=== PATIENT | male | born 1975 | race Caucasian/White ===

== ENCOUNTER 2019-05-21 21:50 | Observation (INO) ==
[2019-05-21] MEDS ORDERED: ADENOCARD ONE (22:14)
[2019-05-21] MEDS ORDERED: ADENOCARD IV ONE (22:24)
--- NOTE | 2019-05-21 22:24 | PROVIDER DOCUMENTATION ---
This chart was entered by Josephine Dobson Scribe, acting as scribe for Ning Rodriguez MD. HPI-Cardiac General - General Stated Complaint: STV ATTACK/HISTORY Time Seen by Provider: 05/21/19 22:14 Source: patient Allergies/Adverse Reactions: Patient Allergies Allergy/AdvReac Type Severity Reaction Status Date / Time Unable to Assess Allergy Verified 01/15/19 16:26 Home Medications: Home Medication List Medication Instructions Recorded Confirmed Last Taken Type Amlodipine [Norvasc] 5 mg PO DAILY #90 tab 11/08/17 01/15/19 01/15/19 08:30 Rx Aspirin 325 mg PO DAILY #90 tab 11/08/17 01/15/19 01/15/19 08:30 Rx LISINOpril [Prinivil] 20 mg PO DAILY #90 tab 11/08/17 01/15/19 01/15/19 08:30 Rx Levothyroxine [Synthroid] 50 microgm PO DAILY #180 tab 11/08/17 01/15/19 01/15/19 08:30 Rx Metoprolol [Lopressor] 50 mg PO DAILY #90 tab 11/08/17 01/15/19 01/15/19 08:30 Rx - History of Present Illness-Cardiac Nature of Presenting Problem: 43 yom c/o svt, weak and very diaphoretic. pt sts happened 1 hr while taking a bath. pt has no cp but has minimal sob. pt has hx of svt, unsure what rx is on to control, and hypothyroid, takes sinthroid and dm. pt sts last had svt on tuesday but didn't seek treatment. pt is smoker, no alcohol or drug use. 2212 svt converted adenosine 6mg Review of Systems - Adult - REVIEW OF SYSTEMS - ADULT Constitutional: reports: no symptoms reported. denies: chills, fever, fatique Eyes: reports: no symptoms reported Ears, Nose, Mouth & Throat: reports: no symptoms reported Cardiovascular: reports: see HPI, irregular heart rate (svt). denies: chest pain, orthopnea, palpitations, syncope Respiratory: reports: see HPI, shortness of breath (minimal). denies: cough, excessive sputum production, hemoptysis Gastrointestinal: reports: no symptoms reported. denies: diarrhea, nausea, vomiting Genitourinary: reports: no symptoms reported Musculoskeletal: reports: see HPI, muscle weakness Integumentary: reports: no symptoms reported Neurological: reports: no symptoms reported Psychiatric: reports: no symptoms reported Endocrine: reports: see HPI, excessive sweating. denies: change in skin pigment, goiter, increased thirst Hematologic/Lymphatic: reports: no symptoms reported Allergic/Immunologic: reports: no symptoms reported All Other Systems: Reviewed and Negative Past History - Adult - PAST MEDICAL HISTORY-ADULT Review of Records: reports: Old Records Reviewed, Nursing Assessment Review, Medications Reviewed, Social history reviewed & non-contributory. Major Childhood Illnesses: reports: denies history Cardiovascular: reports: HTN, hyperlipidemia, other (svt) Respiratory: reports: denies history Gastrointestinal: reports: denies history Obstetrical/Gynecological: reports: denies history Genitourinary: reports: denies history Musculoskeletal: reports: denies history Neurological: reports: denies history Psychiatric: reports: depression Endocrine/Immune: reports: Diabetes, thyroid disorder Other Conditions: reports: denies history - PRIOR SURGERIES/PROCEDURES Surgical/Procedure History: reports: reviewed, not pertinent - IMMUNIZATION STATUS Childhood Immunizations: See Nurse Assessment Flu Vaccine: See Nurse Assessment - FAMILY HISTORY Family History: reviewed, not pertinent - SOCIAL HISTORY Smoking: cigarettes, less than 1 pack/day Provider spent 3-5 mins advising pt. on dangers of tobacco.: Discussed manners to quit use, and f/u contacts for add'l counseling. Substance Use: none/never Physical Exam-General - PHYSICAL EXAM-ADULT Initial Vital Signs Reviewed: Yes - CONSTITUTIONAL General Appearance: alert, mild distress, obese, other (diaphorhetic). negative: slow to respond, obtunded, combative - EYES Eyes: PERRL/EOMI, pink conjunctivae - HEAD, EARS, NOSE, MOUTH & THROAT HENMT: normocephalic/atraumatic, moist mucous membranes, normal ENT inspection - NECK Neck: non-tender, full range of motion, supple, normal inspection - RESPIRATORY Respiratory: chest non-tender, lungs clear, normal breath sounds, no pleuratic chest pain, no respiratory distress, no accessory muscle use - CARDIOVASCULAR Cardiovascular: normal peripheral pulses, no edema, no gallop, no JVD, no murmur , tachycardia (svt). negative: regular rate, rhythm, JVD, bradycardia, friction rub - GASTROINTESTINAL (ABDOMEN) Abdominal Exam: normal bowel sounds, non tender, soft, other (pt has sx scar epigastric to periumbilical) - LYMPHATIC Lymphatic: no adenopathy - MUSCULOSKELETAL Back Exam: normal inspection, no CVA tenderness, no vertebral tenderness Extremity: normal range of motion, non-tender, normal inspection Peripheral Pulses: radial (R): 2+, radial (L): 2+ - SKIN Integumentary: normal color, normal turgor, diaphoresis. negative: warm/dry, rash, swelling, tenderness - NEUROLOGIC Neurologic: grossly normal, no motor/sensory deficits - PSYCHIATRIC Psych/Mental Status: normal mood/affect, normal thought content, normal thought process, oriented x 3 - HEART Score HEART Score: History: Slightly Suspicious HEART Score: ECG: Non-Specific Repolarization Disturbance/LBBB/PM HEART Score: Age: 45-65 Years HEART Score: Risk Factors for Atherosclerotic Disease: 1 or 2 Risk Factors HEART Score: Troponin: < or = Normal Limit Total HEART Score:: 3 Progress - PLAN OF CARE/RESULTS Progress/Plan/Lab Results: Vital Signs - 8 hr 05/21/19 22:00 05/21/19 22:18 05/21/19 22:20 Temperature 98.7 F Pulse Rate 160 H 111 H Respiratory Rate 22 Blood Pressure 104/69 124/95 O2 Sat by Pulse Oximetry 96 96 05/21/19 22:30 05/21/19 22:40 05/21/19 22:50 Temperature Pulse Rate 111 H 113 H 108 H Respiratory Rate 22 20 20 Blood Pressure O2 Sat by Pulse Oximetry 97 97 98 05/21/19 23:00 05/21/19 23:10 05/21/19 23:12 Temperature Pulse Rate 117 H 108 H 114 H Respiratory Rate 14 19 22 Blood Pressure 139/103 O2 Sat by Pulse Oximetry 98 97 99 05/21/19 23:20 05/21/19 23:22 05/21/19 23:30 Temperature Pulse Rate 110 H 108 H 103 H Respiratory Rate 20 24 23 Blood Pressure 131/90 O2 Sat by Pulse Oximetry 98 98 97 05/21/19 23:32 05/21/19 23:40 05/21/19 23:42 Temperature Pulse Rate 108 H 100 H 94 H Respiratory Rate 22 19 18 Blood Pressure 139/94 140/104 O2 Sat by Pulse Oximetry 98 99 98 05/21/19 23:50 05/21/19 23:52 05/22/19 00:00 Temperature Pulse Rate 96 H 112 H 108 H Respiratory Rate 20 13 23 Blood Pressure 143/89 O2 Sat by Pulse Oximetry 98 98 99 05/22/19 00:02 05/22/19 00:10 05/22/19 00:12 Temperature Pulse Rate 96 H 96 H 91 H Respiratory Rate 17 20 21 Blood Pressure 130/83 133/89 O2 Sat by Pulse Oximetry 98 98 98 05/22/19 00:20 Temperature Pulse Rate 87 Respiratory Rate 20 Blood Pressure O2 Sat by Pulse Oximetry 98 Laboratory Results - last 24 hr 05/21/19 05/21/19 05/21/19 22:10 22:10 22:10 WBC 16.63 H RBC 4.57 L Hgb 15.2 Hct 43.9 MCV 96.1 MCH 33.3 H MCHC 34.6 RDW Std Deviation 14.0 Plt Count 356 MPV 10.2 Immature Gran % (Auto) 0.5 Neut % (Auto) 64.3 Lymph % (Auto) 22.3 [place] % (Auto) 9.2 Eos % (Auto) 3.2 Baso % (Auto) 0.5 Immature Gran # (Auto) 0.09 H Neut # (Auto) 10.69 H Lymph # (Auto) 3.71 H [place] # (Auto) 1.53 H Eos # (Auto) 0.53 Baso # (Auto) 0.08 Sodium 141 Potassium 4.9 Chloride 100 Carbon Dioxide 21 L Anion Gap 20 BUN 17 Creatinine 1.0 Estimated GFR/1.73 m2 > 60 BUN/Creatinine Ratio 17 Glucose 312 H Calculated Osmolality 295 Calcium 10.3 H Total Bilirubin 0.20 AST 50 H ALT 37 Alkaline Phosphatase 134 H Creatine Kinase 138 Troponin T < 0.010 Total Protein 7.2 Albumin 4.4 Globulin 2.8 Albumin/Globulin Ratio 1.6 Urine Source 05/22/19 01:47 WBC RBC Hgb Hct MCV MCH MCHC RDW Std Deviation Plt Count MPV Immature Gran % (Auto) Neut % (Auto) Lymph % (Auto) [place] % (Auto) Eos % (Auto) Baso % (Auto) Immature Gran # (Auto) Neut # (Auto) Lymph # (Auto) [place] # (Auto) Eos # (Auto) Baso # (Auto) Sodium Potassium Chloride Carbon Dioxide Anion Gap BUN Creatinine Estimated GFR/1.73 m2 BUN/Creatinine Ratio Glucose Calculated Osmolality Calcium Total Bilirubin AST ALT Alkaline Phosphatase Creatine Kinase Troponin T Total Protein Albumin Globulin Albumin/Globulin Ratio Urine Source CLEAN CATCH Orders Category Date Time Status CHEST-1 VIEW [RAD] Stat Exams 05/21/19 22:25 Taken CBC WITH ELECTRONIC DIFF [HEME] Stat Lab 05/21/19 22:10 Completed CK PROFILE [SP CHEM] Stat Lab 05/21/19 22:10 Completed COMPREHENSIVE METABOLIC PANEL [CHEM] Stat Lab 05/21/19 22:10 Completed TROPONIN T Stat Lab 05/21/19 22:10 Completed UA [URINALYSIS W/POSS RFLX CULT] [URINALYSIS] Stat Lab 05/22/19 01:47 Results URINE DRUG SCREEN Stat Lab 05/21/19 01:47 Received 0.9% Sodium Chloride Inj [Ns] 1,000 ml Med 05/21/19 22:25 Discontinued IV 999 mls/hr Adenosine [Adenocard] Med 05/21/19 22:14 Discontinued 6 mg .ROUTE .STK-MED ONE Adenosine [Adenocard] Med 05/21/19 22:24 Discontinued 6 mg IV NOW ONE Metoprolol [Lopressor] Med 05/21/19 22:48 Discontinued 25 mg PO NOW ONE EKG [EKG] Stat Ther 05/21/19 22:24 Ordered EKG [EKG] Stat Ther 05/22/19 00:35 Ordered Result Diagrams: 05/21/19 22:10 05/21/19 22:10 - EKG 1 Time of EKG reading by physician:: 22:06 EKG Read and Signed by:: Ning Rodriguez EKG Interpretation (*Must complete 3 of following elements*): Abnormal Rate: 173 Rhythm: SVT w/frequent PVC [place]: normal QRS: normal SD Interval: normal ST Wave: non-specific ST changes (nonspecific st abnormality) 2 Time of EKG reading by physician:: 22:14 EKG Read and Signed by:: Ning Rodriguez EKG Interpretation (*Must complete 3 of following elements*): Abnormal Rate: 118 (poss left atrial enlargement ) Rhythm: ST [place]: normal QRS: normal SD Interval: normal ST Wave: non-specific ST changes (nonspecific st abnormality) - CONSULTS/PCP/HOSPITALIST Notification #1 *Consult/PCP/Hospitalist*: D/W DR KING Time Discussed: 02:04 Consult Disposition: Admit Departure - Departure Date of Disposition Decision: 05/22/19 Time of Disposition Decision: 02:04 DIAGNOSIS: SVT (supraventricular tachycardia) Disposition: ADMITTED INPATIENT 09 Certified Medical Emergency: Emergent Condition: Stable Referrals and Follow-Ups: None,PCP [Primary Care Provider] - - Critical Care Note This patient required my direct & personal management of CC.: No Attestation - Physician/ HARDIK Attestation Patient care was provided by Advanced Practice Provider:: No The physician spent face to face time with patient:: Yes Advanced Practice Provider documentation review:: Supervising physician onsite and consulted in the evaluation and care of this patient. The physician did have a face to face encounter with the patient. This chart was documented by the indicated scribe, (Josephine Dobson, Katherin) and accurately reflects the services I performed and decisions made by me, Ning Rodriguez MD, as attested by the provider's signature.
[2019-05-21] MEDS ORDERED: NS 1,000 ML IV ONE (22:25)
[2019-05-21 22:47] LABS: BASO# 0.08 X1000 (0.0-0.2); BASO% 0.5 % (0.0-0.8); EOS# 0.53 X1000 (0.0-0.7); EOS% 3.2 % (0.0-10.0); HEMATOCRIT 43.9 % (42.0-52.0); HEMOGLOBIN 15.2 g/dL (14.0-18.0); IMM GRAN# 0.09 X1000 (0.0-0.04); IMM GRAN% 0.5 % (0.0-0.5); LYMPH# 3.71 X1000 (1.2-3.4); LYMPH% 22.3 % (20.5-51.1); MCH 33.3 PG (27-31); MCHC 34.6 g/dL (33-37); MCV 96.1 FL (81-99); MONO# 1.53 X1000 (0.11-0.59); MONO% 9.2 % (1.7-9.3); MPV 10.2 FL (7.4-10.4); NEUT# 10.69 X1000 (1.4-6.5); NEUT% 64.3 % (42.2-75.2); PLT 356 X1000 (130-400); RBC 4.57 XMIL (4.7-6.1); WBC 16.63 X1000 (4.8-10.8)
[2019-05-21] MEDS ORDERED: LOPRESSOR PO ONE (22:48)
[2019-05-21 23:47] LABS: AGAP 20; ALB/GLOB RATIO 1.6; ALBUMIN 4.4 g/dL (3.5-5.0); ALKALINE PHOSPHATASE 134 U/L (32-122); BUN 17 mg/dL (8-22); CALCIUM 10.3 mg/dL (8.8-10.2); CHLORIDE 100 mmol/L (98-107); CK PROFILE 138 U/L (24-204); COSMO 295; ESTIMATED GFR > 60; GLUCOSE 312 mg/dL (70-104); GOT 50 U/L (10-34); GPT 37 U/L (10-44); POTASSIUM 4.9 mmol/L (3.5-5.1); SODIUM 141 mmol/L (136-145); TCO2 21 mmol/L (25-35); TOTAL PROTEIN 7.2 g/dL (6.3-8.3)
[2019-05-22 01:53] LABS: URINE SOURCE CLEAN CATCH
[2019-05-22 02:21] LABS: BILIRUBIN URINE NEGATIVE (NEGATIVE); BLOOD URINE NEGATIVE (NEGATIVE); COLOR YELLOW; GLUCOSE URINE TRACE mg/dL (NEGATIVE); KETONE URINE NEGATIVE (NEGATIVE); LEUKOCYTES URINE NEGATIVE (NEGATIVE); NITRITE URINE NEGATIVE (NEGATIVE); PH URINE 5.5; PROTEIN URINE 100 mg/dL (NEGATIVE); SP GRAVITY URINE 1.021; TURBIDITY URINE CLEAR (CLEAR); UR EPITHELIAL CELLS <10 /HPF (<10); URINE BACTERIA NEGATIVE /HPF; URINE RBC <10 /HPF (<10); URINE WBC <10 /HPF (<10); UROBILINOGEN URINE NORMAL (NORMAL)
[2019-05-22 02:48] LABS: UR AMPHETAMINES QUAL NONE DETECTED (NONE DETECT); UR BARBITUATES QUAL NONE DETECTED (NONE DETECT); UR BENZODIAZEPIN QUAL NONE DETECTED (NONE DETECT); UR CANNABINOIDS QUAL NONE DETECTED (NONE DETECT); UR COCAINE QUAL NONE DETECTED (NONE DETECT); UR METHADONE QUAL NONE DETECTED (NONE DETECT); UR OPIATES QUAL NONE DETECTED (NONE DETECT); UR OXYCODONE QUAL NONE DETECTED (NONE DETECT); UR PCP QUAL NONE DETECTED (NONE DETECT)
[2019-05-22] MEDS ORDERED: TYLENOL PO PRN (03:02)
[2019-05-22] MEDS ORDERED: LOVENOX SUBQ SCH (03:02)
[2019-05-22] MEDS ORDERED: ZOFRAN IV PRN (03:02)
--- NOTE | 2019-05-22 03:36 | EKG Report ---
Test Performed on : 05/21/2019 10:06:01 PM Test Reason : SVT Blood Pressure : / mmHG Vent. Rate : 173 BPM Atrial Rate : 082 BPM P-R Int : 000 ms QRS Dur : 082 ms QT Int : 288 ms P-R-T Axes : 000 083 007 degrees QTc Int : 488 ms Supraventricular tachycardia. with frequent premature ventricular complexes. Nonspecific ST abnormality Abnormal ECG When compared with ECG of 15-JAN-2019 16:21, premature ventricular complexes. are now present Vent. rate has increased BY [address] now depressed in Lateral leads Nonspecific T wave abnormality no longer evident in Lateral leads Unconfirmed Result
--- NOTE | 2019-05-22 03:38 | EKG Report ---
Test Performed on : 05/21/2019 10:14:30 PM Test Reason : SVT Blood Pressure : / mmHG Vent. Rate : 118 BPM Atrial Rate : 118 BPM P-R Int : 148 ms QRS Dur : 086 ms QT Int : 322 ms P-R-T Axes : 063 084 052 degrees QTc Int : 451 ms Sinus tachycardia. Possible Left atrial enlargement Nonspecific ST abnormality Abnormal ECG When compared with ECG of 21-MAY-2019 22:06, (Unconfirmed) premature ventricular complexes. are no longer present Unconfirmed Result
[2019-05-22 03:51] LABS: HEMATOCRIT 39.5 % (42.0-52.0); HEMOGLOBIN 13.2 g/dL (14.0-18.0); MCH 31.8 PG (27-31); MCHC 33.4 g/dL (33-37); MCV 95.2 FL (81-99); PLT 335 X1000 (130-400); RBC 4.15 XMIL (4.7-6.1); RDW 13.9 % (11.5-14.5); WBC 13.39 X1000 (4.8-10.8)
[2019-05-22 03:52] LABS: BASO# 0.07 X1000 (0.0-0.2); BASO% 0.5 % (0.0-0.8); EOS# 0.52 X1000 (0.0-0.7); EOS% 3.9 % (0.0-10.0); IMM GRAN# 0.06 X1000 (0.0-0.04); IMM GRAN% 0.4 % (0.0-0.5); LYMPH# 3.37 X1000 (1.2-3.4); LYMPH% 25.2 % (20.5-51.1); MONO# 1.19 X1000 (0.11-0.59); MONO% 8.9 % (1.7-9.3); MPV 9.4 FL (7.4-10.4); NEUT# 8.18 X1000 (1.4-6.5); NEUT% 61.1 % (42.2-75.2)
[2019-05-22] MEDS: NS 1,000 ML IV SCH ×2 (03:54→15:11)
[2019-05-22 04:30] LABS: AGAP 12; BUN 16 mg/dL (8-22); CALCIUM 9.3 mg/dL (8.8-10.2); CHLORIDE 105 mmol/L (98-107); COSMO 284; CREATININE 0.8 mg/dL (0.7-1.2); ESTIMATED GFR > 60; GLUCOSE 84 mg/dL (70-104); HEMOGLOBIN A1C 6.3 % (4.8-6.0); MAGNESIUM 1.8 mg/dL (1.5-2.7); POTASSIUM 3.9 mmol/L (3.5-5.1); SODIUM 142 mmol/L (136-145); TCO2 25 mmol/L (25-35)
[2019-05-22] MEDS: HUMALOG SUBQ SCH ×2 (06:05→12:43)
--- NOTE | 2019-05-22 07:08 | Diag Imaging Result Doc PS360 ---
EXAM: CHEST-1 VIEW 05/21/2019 HISTORY: SOB TECHNIQUE: AP portable at 2233 COMMENT: There is no evidence of acute cardiac or pulmonary disease. Compared to 01/15/2019 there has been no significant change. IMPRESSION: No acute disease. Electronically signed by Stan Sibley 05/22/2019 7:06 AM
--- NOTE | 2019-05-22 07:44 | HISTORY AND PHYSICAL ---
PRIMARY CARE PHYSICIAN: [facility]. CHIEF COMPLAINT: SVT, palpitations. HISTORY OF PRESENT ILLNESS: This is a 43-year-old male with a past medical history of diabetes, hypothyroidism, hyperlipidemia, hypertension and gout and SVT. He had a recurrence of SVT in October 2017. At that time, he was given Adenosine, converted and was sent home to follow up with Cardiology. [facility]. He was found to have SVT in the emergency room and was again given Adenosine and converted. He was then given 25 mg of metoprolol and he is in normal sinus rhythm at the time of my interview. On arrival, he was weak and diaphoretic. It happened an hour after arrival while he was taking a bath. The patient did not know any of his strengths of his medications and he was unable to tell me which medications he took, but he said that his mother would bring his medications tomorrow morning. At any rate, he will be placed in Observation status for further evaluation and treatment. PAST MEDICAL HISTORY: See HPI. PREVIOUS SURGICAL HISTORY: Spleen repair. SOCIAL HISTORY: He is a 20 year one pack a day smoker. No alcohol or illicit drugs. SOCIAL HISTORY: CVA in grandmother. Denies any other pertinent medical history. ALLERGIES: No known drug allergies. HOME MEDICATIONS: This cannot be obtained at this time. He does know that he takes Synthroid. He does not know what he takes for rate control or hyperlipidemia. Again, a list will be brought this morning. REVIEW OF SYSTEMS: A 14 point review of systems conducted with the patient. Pertinent positives listed above in the HPI. All other systems reviewed and found to be negative. PHYSICAL EXAMINATION: VITAL SIGNS: Temp 97.4 degrees, pulse 80, respirations 18, blood pressure 140/84, oxygen saturation 98% on room air. GENERAL: Pleasant 43-year-old male, alert and oriented x3, answers all questions appropriately, is in no acute distress. HEENT: Head is atraumatic, normocephalic. Pupils equal, round and reactive to light. Extraocular eye movements intact. Sclerae anicteric. Conjunctivae pink. Oral mucosa is moist. NECK: Moist. No JVD, no thyromegaly. Trachea is midline. No cervical lymphadenopathy. CARDIAC: S1, S2 appreciated. No murmurs, gallops, rubs. LUNGS: Clear to auscultation bilaterally. No rhonchi, wheezes, rales. Mildly decreased bilaterally. ABDOMEN: Protuberant, soft, nondistended, nontender. Bowel sounds present all 4 quadrants. Normoactive. No pulsatile masses or organomegaly. EXTREMITIES: No clubbing, cyanosis or edema. 2+ pedal pulses bilaterally. SKIN: Warm, dry and intact. No acute lesions or rash. DIAGNOSTIC DATA: Chest x-ray: Poor inspiratory effort, otherwise normal on examination. EKG originally showed SVT with a rate of 173 and has since converted to normal sinus rhythm. LABORATORY DATA: WBC 16.63, hemoglobin 15.2, hematocrit 43.9, platelet count 356,000. Sodium 141, potassium 4.9, chloride 100, carbon dioxide 21, BUN 17, creatinine 1, glucose 312. Urine unremarkable. Toxicology screen negative. ASSESSMENT AND PLAN: 1. SVT. The patient received fluids and Adenosine as well as metoprolol p.o. We will continue his home medications. Recheck an echocardiogram. He had one in December of last year which was normal. Trend cardiac enzymes. Check a TSH level. 2. Hypertension. Continue home medications once they are reconciled. 3. Hyperlipidemia. Continue home medications once reconciled. 4. Hypothyroidism. As noted above, check TSH. Continue home medications. Patient should be able to discharge later today after having his echo and having his cardiac enzymes trended. Suspect that he will be able to resume his home medications and follow up with Cardiology. Dictated by VASILE Metzger for Zan Kaufman MD I have performed a face to face diagnostic evaluation. Labs/ Xrays- reviewed. Exam- chest- rales, CV-regular. A/P- SVT- admit, continue with metorpolol, cardiology consult. Dr. Kaufman cc: VASILE Metzger MD [facility]
--- NOTE | 2019-05-22 07:44 | EKG Report ---
Test Performed on : 05/22/2019 07:08:52 AM Test Reason : chest pain Blood Pressure : / mmHG Vent. Rate : 060 BPM Atrial Rate : 060 BPM P-R Int : 158 ms QRS Dur : 082 ms QT Int : 430 ms P-R-T Axes : 057 061 073 degrees QTc Int : 430 ms Normal sinus rhythm. Septal infarct , age undetermined Abnormal ECG When compared with ECG of 21-MAY-2019 22:14, (Unconfirmed) Vent. rate has decreased BY [address] no longer depressed in Lateral leads Nonspecific T wave abnormality no longer evident in Inferior leads Nonspecific T wave abnormality now evident in Lateral leads Confirmed by Osbaldo Matthew MD ([id number]) on 05/27/2019 9:27:36 PM
[2019-05-22 15:29] VITALS: BP 160/89
[2019-05-22] MEDS ORDERED: TOPROL XL PO SCH (17:00)
--- NOTE | 2019-05-22 19:07 | ECHO REPORT ---
ORDER DATE: 05/22/2019 INTERPRETING PHYSICIAN: Bronson Hennessy MD INDICATION: Supraventricular tachycardia. M-MODE MEASUREMENTS: Left ventricle end diastole: 5.6 cm. Left ventricle end systole: 3.1 cm. Posterior wall: 0.9 cm. Interventricular septum: 0.8 cm. Left atrium: 3.5 cm. Aortic diameter: 2.9 cm. SUMMARY OF 2-DIMENSIONAL IMAGIN. Left ventricular function is normal with an ejection fraction of 67%. There is no wall motion abnormality noted. Chamber is slightly generous in size. 2. The aortic valve is normal. Color flow mapping is unremarkable. 3. The pulmonic valve is normal. Color flow mapping is unremarkable. 4. The tricuspid valve is normal. Color flow mapping unremarkable. 5. The inferior vena cava was not well visualized. 6. The mitral valve looks normal. Color flow mapping unremarkable. 7. Pulsed wave Doppler of mitral inflow is normal. 8. Tissue Doppler of septal and lateral mitral annulus averages 12 cm. 9. Pulmonary venous flow is normal. 10.There is no diastolic dysfunction. 11.The atria did not appear to be particularly dilated. 13.There is no pericardial effusion, mass, and no thrombus. SUMMARY: In summary, this echocardiographic study appears to be grossly within normal range. Clinical correlation is recommended. cc: MD Jacques Rollins CRNP
--- NOTE | 2019-07-09 17:19 | DISCHARGE SUMMARY ---
ADMISSION DATE: 05/22/2019 DISCHARGE DATE: 05/22/2019 DISCHARGE DIAGNOSES: 1. Supraventricular tachycardia. 2. Hypertension. 3. Hypothyroidism. CONSULTS: I do not think Cardiology so him. HOSPITAL COURSE: He is 43. He came in with SVT. He was given Toprol and improved. He was a bit weak, diaphoretic. He had an echocardiogram obtained, which showed an EF of 60%. The rest of the valves are pretty much normal. I think he maintained a normal sinus rhythm. I think he was evaluated by Cardiology, but I do not see a note. I guess, since he had been stabilized, he was felt stable to go home. DISCHARGE MEDICATIONS: Allopurinol 300 b.i.d. [place] which is amlodipine 5 and atorvastatin 20 daily. Ferrous sulfate 325 b.i.d. Glimepiride 2 daily. Metformin 1 g b.i.d. Meloxicam 15 daily. Paroxetine 18 40 daily. Risperidone 3 at bedtime. Lisinopril 20 daily. Synthroid 50 daily. Toprol-XL 50 daily. DISPOSITION: The patient was felt stable for discharge. FOLLOW-UP: Follow-up with his PCP, which is a free clinic. COORDINATION TIME: 32-minute discharge. cc: Avinash Zhu MD
== END 2019-05-22 18:43 | disposition home or self-care (01) ==
LOC: 3N 21:50 → ED 21:50 → SUATTDRO 05-22 02:35
PROVIDERS: ATTEND Internal Medicine